=== PATIENT | female | born 1955 | race Hispanic/Latino ===

== ENCOUNTER 2017-12-28 02:18 | Inpatient (IN) | payer BC, OTHER ==
[2017-12-28] MEDS ORDERED: Albuterol 0.083% Inhal Sol (2.5 mg/3 mL) UD INH ONE (03:00)
--- NOTE | 2017-12-28 03:02 | ED PDOC ---
HPI: SOB/CHF/COPD Time Seen by Provider: 12/28/17 02:35 Chief Complaint (Nursing): Respiratory Distress Chief Complaint (Provider): Respiratory Distress History Per: Patient, Family (Brother) History/Exam Limitations: no limitations Associated Symptoms: denies: Fever Additional Complaint(s): 62 years old female with history of colon cancer that metastasized to body, lungs and brain, presents to ER for evaluation of shortness of breath and increased heart rate. Per brother on bedside, patient had her last chemotherapy treatment today. Brother reports patient is on Keppra and steroids and she does not wish to be intubated or on life support. She had surgery by Dr. Landers in [place] and [place] is where patient follows for treatment. Brother denies patient having fever or vomiting. She is awake, somnolent but not verbal at this time. PMD: non provided Past Medical History Reviewed: Historical Data, Nursing Documentation, Vital Signs Vital Signs: Last Vital Signs Temp 98.6 F 12/28/17 02:25 Pulse 145 H 12/28/17 02:25 Resp 34 H 12/28/17 02:25 BP 133/89 12/28/17 02:25 Pulse Ox 93 L 12/28/17 02:25 - Medical History PMH: HTN Other PMH: Metastasized colon cancer - Surgical History Other surgeries: Colon and brain surgery - Family History Family History: States: Unknown Family Hx - Social History Current smoker - smoking cessation education provided: No (as per brother) Alcohol: None Drugs: Denies - Home Medications Home Medications: Ambulatory Orders Medication Instructions Recorded Levetiracetam [Roweepra] 500 mg PO BID 12/28/17 Metoprolol Tartrate [Lopressor] 25 mg PO BID 12/28/17 Nystatin [Nystatin Oral Susp] 1 tsp PO QID 12/28/17 Ondansetron [Zofran] 8 mg PO Q8 12/28/17 Trifluridine/Tipiracil HCl 3 tab PO BID 12/28/17 [Lonsurf 20 mg-8.19 mg Tablet] predniSONE [Prednisone] 40 mg PO DAILY 12/28/17 - Allergies Allergies/Adverse Reactions: Allergies Allergy/AdvReac Type Severity Reaction Status Date / Time iodine Allergy ANAPHYLAXIS Verified 12/28/17 02:25 Review of Systems ROS Statement: Except As Marked, All Systems Reviewed And Found Negative Constitutional: Negative for: Fever Respiratory: Positive for: Shortness of Breath Gastrointestinal: Negative for: Vomiting Physical Exam - Reviewed Nursing Documentation Reviewed: Yes Vital Signs Reviewed: Yes - Physical Exam Appears: Positive for: Non-toxic (non verbal, baseline) Head Exam: Positive for: ATRAUMATIC, NORMOCEPHALIC Skin: Positive for: Pallor Eye Exam: Positive for: Normal appearance ENT: Positive for: Normal ENT Inspection Neck: Positive for: Normal Cardiovascular/Chest: Positive for: Regular Rate, Rhythm. Negative for: Murmur Respiratory: Positive for: Rhonchi, Other (Dyspnea) Gastrointestinal/Abdominal: Positive for: Normal Exam, Soft. Negative for: Tenderness Extremity: Positive for: Normal ROM Neurologic/Psych: Positive for: Alert (could say a few words here and there, but didnt speak a lot. ) - Laboratory Results Result Diagrams: 12/28/17 10:16 12/28/17 10:16 - ECG O2 Sat by Pulse Oximetry: 93 Pulse Ox Interpretation: Abnormal Medical Decision Making Medical Decision Making: Time: 244 Initial Plan: shortness of breath, history of metastatic cancer. per pts brother pt is DNR DNI. --CMP --CBC --Chest x-ray --Albuterol 2.5 mg INH --Nebulizer treatment --Blood culture --Urine culture --BIPAP/CPAP setting adjustment --Urinalysis respiratory called for BIPAP pt slightly improved w bipap however changed settings due to the elevated co2 according to family pt is DNR DNI covered pt with IV antibiotics [address] Galicia, medicine carbon sequestration plant manager, (pts pcp not here) who accepts patient for admission. Scribe Attestation: Documented by Evette Kidd, acting as a scribe for Cullen Erickson MD. Provider Scribe Attestation: All medical record entries made by the Scribe were at my direction and personally dictated by me. I have reviewed the chart and agree that the record accurately reflects my personal performance of the history, physical exam, medical decision making, and the department course for this patient. I have also personally directed, reviewed, and agree with the discharge instructions and disposition. Disposition - Clinical Impression Clinical Impression: Respiratory distress, Colon cancer, Brain metastasis - Patient ED Disposition Is Patient to be Admitted: Yes Counseled Patient/Family Regarding: Studies Performed, Diagnosis - Disposition Disposition Time: 05:00 Condition: SERIOUS
[2017-12-28 03:40] LABS: BASO # 0.5 K/uL (0.0-0.2); BASO % 1.2 % (0.0-2.0); HEMOGLOBIN 11.7 g/dL (12.0-16.0); LYMPH # 0.5 K/uL (1.0-4.3); LYMPH % 1.3 % (20.0-40.0); MEAN CORPUSCULAR HEMOGLOBIN 25.4 pg (27.0-31.0); MEAN CORPUSCULAR HGB CONC 30.6 g/dL (33.0-37.0); MEAN PLATELET VOLUME 8.5 fl (7.2-11.7); MONO # 1.9 K/uL (0.0-0.8); MONO % 4.6 % (0.0-10.0); NEUT % 92.9 % (50.0-75.0); NRBC % 0.1 % (0.0-0.0); PLATELET COUNT 477 K/uL (130-400); RED CELL DISTRIBUTION WIDTH 21.5 % (11.5-14.5)
[2017-12-28 03:44] LABS: ALB/GLOB RATIO 0.9 (1.0-2.1); ALBUMIN 4.3 g/dL (3.5-5.0); BLOOD UREA NITROGEN 20 mg/dl (7-17); CALCIUM 9.8 mg/dL (8.4-10.2); GFR NON-AFRICAN AMERICAN > 60
[2017-12-28 03:49] LABS: WHITE BLOOD COUNT 40.9 K/uL (4.8-10.8)
[2017-12-28 03:52] LABS: ALT/SGPT 40 U/L (9-52); AST/SGOT 62 U/L (14-36)
[2017-12-28] MEDS ORDERED: Piperacillin/Tazobact 3.375 GM in Sodium Chloride 0.9% 100 ML IVPB STA (05:15)
[2017-12-28 05:16] LABS: ABG ALLEN TEST YES; ARTERIAL BLOOD GAS HCO3 32.6 mmol/L (21-28); ARTERIAL BLOOD GAS O2 SAT 100.8 % (95-98); ARTERIAL BLOOD GAS PCO2 88 mm/Hg (35-45); ARTERIAL BLOOD GAS PH 7.27 (7.35-7.45); ARTERIAL BLOOD GAS PO2 156 mm/Hg (80-100); ARTERIAL BLOOD GAS TCO2 43.1 mmol/L (22-28)
[2017-12-28 05:32] LABS: BANDS 2 % (0-2); LYMPHOCYTE 1 % (20-50); MONOCYTE 8 % (0-10); NEUTROPHIL 89 % (42-75); PLATELET ESTIMATE MARKEDLY INCREASED (NORMAL); TOTAL CELLS COUNTED 100
[2017-12-28 05:33] LABS: HYPOCHROMIC SLIGHT; LARGE PLATELETS PRESENT; STOMATOCYTES SLIGHT
[2017-12-28 06:14] LABS: SQUAMOUS EPITHIAL 54 /hpf (0-5); URINE BILIRUBIN NEGATIVE (NEGATIVE); URINE BLOOD SMALL (NEGATIVE); URINE CLARITY TURBID (Clear); URINE COLOR AMBER (YELLOW); URINE GLUCOSE (UA) 50 mg/dL (Normal); URINE LEUKOCYTE ESTERASE TRACE Leu/uL (Negative); URINE PROTEIN 100 mg/dL (NEGATIVE)
[2017-12-28] MEDS ORDERED: Albuterol 0.083% Inhal Sol (2.5 mg/3 mL) UD ONE (07:06)
--- NOTE | 2017-12-28 09:39 | RAD ---
Date of service: 12/28/2017 HISTORY: sob COMPARISON: No prior. FINDINGS: LUNGS: Extensive opacification of the bilateral lung leach appreciated in a pattern most compatible with advance bilateral pulmonary metastasis. Underlying pneumonia not excluded bilaterally. Right MediPort in position with the tip turning the region of the distal superior vena cava. Approaches by right internal jugular vein apparently. PLEURA: No significant pleural effusion identified, no pneumothorax apparent. CARDIOVASCULAR: No aortic atherosclerotic calcification present. Normal cardiac size. No pulmonary vascular congestion. OSSEOUS STRUCTURES: No significant abnormalities. VISUALIZED UPPER ABDOMEN: Normal. OTHER FINDINGS: None. IMPRESSION: Widespread pulmonary metastases are suggested at the bilateral lungs with right MediPort in situ. Underlying infiltrate not completely excluded bilaterally, left greater than right. Follow-up chest CT can better define pulmonary parenchymal pathology.
--- NOTE | 2017-12-28 09:46 | CARD ---
APPROVED REPORT Date of service: 12/28/2017 EKG Measurement Heart [id number] 128P30 [id number] <Conclusion> Sinus tachycardia Left axis deviation Inferior infarct, age undetermined Nonspecific ST changes Abnormal ECG
[2017-12-28] MEDS ORDERED: Sodium Chloride 0.9% 1,000 ML IV SCH (10:00)
[2017-12-28 10:21] LABS: HEMOGLOBIN 10.9 g/dL (12.0-16.0); MEAN CELL VOLUME 81.9 fl (81.0-99.0); MEAN CORPUSCULAR HEMOGLOBIN 25.1 pg (27.0-31.0); MEAN CORPUSCULAR HGB CONC 30.6 g/dL (33.0-37.0); RBC 4.34 Mil/uL (3.80-5.20); RED CELL DISTRIBUTION WIDTH 21.3 % (11.5-14.5)
[2017-12-28 10:25] LABS: WHITE BLOOD COUNT 44.5 K/uL (4.8-10.8)
[2017-12-28 10:33] LABS: BLOOD UREA NITROGEN 24 mg/dl (7-17); CALCIUM 9.6 mg/dL (8.4-10.2); GFR NON-AFRICAN AMERICAN > 60
[2017-12-28 10:40] LABS: INR 1.2; PROTHROMBIN TIME 13.9 Seconds (9.8-13.1)
--- NOTE | 2017-12-28 11:04 | PCM.RRT ---
<Tree Evans - Last Filed: 12/28/17 14:05> CONCRETE PRODUCTS MACHINE OPERATOR Nurse Assessment - Situation CONCRETE [employer]ODU[employer] MACHINE OPERATOR Responder Arrival Time: 10:34 CONCRETE [employer]ODU[employer] MACHINE OPERATOR Reason for Call: Hypotension [employer]CR[employer]E [employer]ODU[employer] MACHINE OPERATOR Called By: RN - Ventilator Settings FIO2 (% Oxygen): 100 I.Reason for CONCR[employer]E [employer]ODU[employer] MACHINE OPERATOR - A) Acute Change in Patient: Subjective: Deborah Umaña is a 62 yo female with with history of colon cancer that metastasized to body, lungs and brain DNI but DO resuscitate with compression and medication, presented to ED due to SOB and tackycardia, admitted for Further evaluation. At 10:34 12/28/2017 A CONCR[employer]E [employer]ODU[employer] MACHINE OPERATOR was called due to patient blood pressure dropped to 67/37 and patient was unresponsive. Upon arrival Patient was in acute distress, unable to breath proparly, and was using extra respiratory muscle. Patient was put on Bipap, NaCl was started. ABG, EKG which showed hypercapnia but no acute changes in EKG. Patient was put on blood pressure monitoring. Patient became more awake and more responsive. On BiPAP RR was fluctuate in the 30s T volume was between 280-350, blood pressure 124/73-101/73. Patient status have improved, blood pressure is controlled, RR improved. CONCR[employer]ODU[employer] MACHINE OPERATOR was done at 10:45. Dr Galicia is aware and agreed with plan. - Neurological Status (Select all that apply): absent: Responsive - Respiratory Oxygen Delivery Method: BiPAP @% - Constitutional Appears: In Acute Distress - Head Head Exam: ATRAUMATIC, NORMAL INSPECTION, NORMOCEPHALIC - Eyes Eye Exam: EOMI, Normal appearance, PERRL - Respiratory Exam Respiratory Exam: Accessory Muscle Use, Clear to Ausculation Bilateral - Cardiovascular Exam Cardiovascular Exam: REGULAR RHYTHM, +S1, +S2 - GI/Abdominal Exam GI & Abdominal Exam: Soft, Normal Bowel Sounds - Neurological Exam Neurological Exam: Awake - Extremities Exam Extremities Exam: Normal Capillary Refill Plan - Assessment of Findings&Treatment Plan Deborah Umaña is a 62 yo female with with history of colon cancer that metastasized to body, lungs and brain DNI but DO resuscitate with compression and medication, presented to ED due to SOB and tackycardia, admitted for Further evaluation. S/P [employer]E [employer]ODU[employer] MACHINE OPERATOR Patient is on BIPAP EKG: No acute finding, sinus tackycardia, Left axis deviation, old inferior infarct age undetermined. ABG: hypercapnia pCo2 74, Ph 7.29 Troponin negative Plan Continue BIPAP Continue IV fluid Keep monitoring bp Keep monitoring ox saturation Keep patient awake <Suzanne Landers Kojo - Last Filed: 12/29/17 09:58> CONCR[employer]ODU[employer] MACHINE OPERATOR Nurse Assessment - Vital Signs Vital Signs: Rapid Response Vital Sign Blood Pressure 67/37 Pulse Rate 145 - Vital Signs at end of CON[employer]ODU[employer] MACHINE OPERATOR Vital Signs at end of CON[employer]ODU[employer] MACHINE OPERATOR: Rapid Response End Vital Sign Blood Pressure 114/66 Pulse Rate 136 Respiratory Rate 35 O2 Sat by Pulse Oximetry 93 Attending/Attestation - Attestation I have personally seen and examined this patient.: Yes I have fully participated in the care of the patient.: Yes I have reviewed all pertinent clinical information, including history, physical exam and plan: Yes Notes (Text): 12/29/17 09:58 Seen, examined, and discussed with resident. Agree with findings and plan as above.
[2017-12-28 16:07] VITALS: BP 107/69; PULSE 129; RESP 19; TEMP 101.8
--- NOTE | 2017-12-28 19:03 | CARD ---
APPROVED REPORT Date of service: 12/28/2017 EKG Measurement Heart [id number] DC 128P37 [id number] <Conclusion> Sinus tachycardia Left axis deviation Nonspecific ST and T wave changes, consider lateral wall ischemia Inferior infarct, age undetermined Abnormal ECG
--- NOTE | 2017-12-28 20:37 | CP.PCM.HP ---
History of Present Illness - History of Present Illness History of Present Illness: CC Respiratory Distress. Hx from Pt's medical record. 62 y/o F, Status DNI but do resuscitate with compression and medications, PMHx. HTN, Colon Ca with last Chemo given 1 month ago, metastasis to Lung/Brain, brought to ER [facility], via EMS on 12/28/17 to be evaluated for respiratory distress with increased SOB, associated to tachycardia/increased HR 145, onset hrs [employer] [place] [place], with no changes. At 10:30 while in ER on DOA, ENTRY LEVEL ASSISTANT MANAGER was called, Pt went into acute distress, unresponsive, with increased HR and drop of BP: 67/37, unable to breath and was placed on BIPAP Mask, FIO2 100% Symptoms by Pt unable to obtain 2nd to nonverbal. Worsening symptoms: Dyspnea at rest and on exertion, lethargic. Aggravated factor: Unable to cooperate with medical information. Nonverbal. CXR: Widespread pulmonary metastases b/l EKG: Sinus tachycardia, inferior infarct age undetermined. Present on Admission - Present on Admission Any Indicators Present on Admission: No Review of Systems - Review of Systems Systems not reviewed;Unavailable: Acuity of Condition, Respiratory Distress Past Patient History - Past Medical History & Family History Past Medical History?: Yes Pertinent Family History: Unknown - Past Social History Smoking Status: Never Smoked Alcohol: None Drugs: Denies Home Situation {Lives}: With Family - CARDIAC Hx Cardiac Disorders: Yes Hx Hypertension: Yes - PULMONARY Hx Respiratory Disorders: Yes Hx Lung Cancer: Yes - HEENT Hx HEENT Problems: No - RENAL Hx Chronic Kidney Disease: No - ENDOCRINE/METABOLIC Hx Endocrine Disorders: No - HEMATOLOGICAL/ONCOLOGICAL Hx Blood Disorders: Yes Hx Metastesis: Yes Other/Comment: colon CA, lung CA, brain CA - INTEGUMENTARY Hx Dermatological Problems: No - MUSCULOSKELETAL/RHEUMATOLOGICAL Hx Musculoskeletal Disorders: Yes Hx Falls: Yes - GASTROINTESTINAL Hx Gastrointestinal Disorders: Yes Hx Ileostomy: Yes Other/Comment: Colon cancer treated w/radiation and chemo; chemo finished last month; radiation finished in 2012 - GENITOURINARY/GYNECOLOGICAL Hx Genitourinary Disorders: No - PSYCHIATRIC Hx Psychophysiologic Disorder: No Hx Substance Use: No - SURGICAL HISTORY Hx Surgeries: Yes Other/Comment: tumor removal; ileostomy and reversal - ANESTHESIA Hx Anesthesia: Yes Hx Anesthesia Reactions: No Hx Malignant Hyperthermia: No Meds Allergies/Adverse Reactions: Allergies Allergy/AdvReac Type Severity Reaction Status Date / Time iodine Allergy ANAPHYLAXIS Verified 12/28/17 02:25 Physical Exam - Constitutional Appears: Chronically Ill - Head Exam Head Exam: NORMAL INSPECTION - ENT Exam ENT Exam: Normal Exam Additional comments: On facial BIPAP mask. - Neck Exam Neck exam: Positive for: Normal Inspection - Respiratory Exam Respiratory Exam: Decreased Breath Sounds, Rhonchi - Cardiovascular Exam Cardiovascular Exam: REGULAR RHYTHM - GI/Abdominal Exam GI & Abdominal Exam: Normal Bowel Sounds, Soft - Extremities Exam Extremities exam: Positive for: normal inspection - Psychiatric Exam Additional comments: Lethargic, nonverbal - Skin Skin Exam: Warm Results - Vital Signs Recent Vital Signs: Last Vital Signs Temp 101.8 F H 12/28/17 16:06 Pulse 129 H 12/28/17 16:06 Resp 19 12/28/17 16:06 BP 107/69 12/28/17 16:06 Pulse Ox 96 12/28/17 16:06 reviewed Amira - Labs Result Diagrams: 12/28/17 10:16 12/28/17 10:16 Labs: Laboratory Results - last 24 hr 12/28/17 12/28/17 12/28/17 03:12 03:12 05:01 WBC 40.9 H* RBC 4.60 Hgb 11.7 L Hct 38.2 MCV 83.0 MCH 25.4 L MCHC 30.6 L RDW 21.5 H Plt Count 477 H MPV 8.5 Neut % (Auto) 92.9 H Lymph % (Auto) 1.3 L [place] % (Auto) 4.6 Eos % (Auto) 0.0 Baso % (Auto) 1.2 Neut # (Auto) 38.0 H Lymph # (Auto) 0.5 L [place] # (Auto) 1.9 H Eos # (Auto) 0.0 Baso # (Auto) 0.5 H Neutrophils % (Manual) 89 H Band Neutrophils % 2 Lymphocytes % (Manual) 1 L Monocytes % (Manual) 8 Platelet Estimate Markedly increased H Large Platelets Present Hypochromasia (manual) Slight Stomatocytes Slight PT INR pCO2 88 H* pO2 156 H HCO3 32.6 H ABG pH 7.27 L ABG Total CO2 43.1 H ABG O2 Saturation 100.8 H ABG Base Excess 9.8 H Ramiro Test Yes ABG Potassium 3.7 A-a O2 Difference 447.0 Glucose 121 H Lactate 1.6 Vent Mode Bipap Mechanical Rate 16 FiO2 100.0 Inspiratory BiPAP 16 Expiratory BiPAP 6 Crit Value Called To maryse Erickson md Crit Value Called By [place] Crit Value Read Back Y Blood Gas Notified Time 515 Sodium 133 125.0 L Potassium 4.5 Chloride 88 L 92.0 L Carbon Dioxide 35 H Anion Gap 15 BUN 20 H Creatinine 0.5 L Est GFR ( Amer) > 60 Est GFR (Non-Af Amer) > 60 POC Glucose (mg/dL) Random Glucose 151 H Calcium 9.8 Total Bilirubin 1.0 AST 62 H ALT 40 Alkaline Phosphatase 176 H Troponin I Total Protein 8.8 H Albumin 4.3 Globulin 4.5 H Albumin/Globulin Ratio 0.9 L Arterial Blood Potassium 3.7 Urine Color Urine Clarity Urine pH Ur Specific [place] Urine Protein Urine Glucose (UA) Urine Ketones Urine Blood Urine Nitrate Urine Bilirubin Urine Urobilinogen Ur Leukocyte Esterase Urine Microscopic WBC Ur Squamous Epith Cells 12/28/17 12/28/17 12/28/17 06:02 09:35 10:16 WBC 44.5 H* RBC 4.34 Hgb 10.9 L Hct 35.6 MCV 81.9 MCH 25.1 L MCHC 30.6 L RDW 21.3 H Plt Count 399 MPV Neut % (Auto) Lymph % (Auto) [place] % (Auto) Eos % (Auto) Baso % (Auto) Neut # (Auto) Lymph # (Auto) [place] # (Auto) Eos # (Auto) Baso # (Auto) Neutrophils % (Manual) Band Neutrophils % Lymphocytes % (Manual) Monocytes % (Manual) Platelet Estimate Large Platelets Hypochromasia (manual) Stomatocytes PT INR pCO2 pO2 HCO3 ABG pH ABG Total CO2 ABG O2 Saturation ABG Base Excess [place] Test ABG Potassium A-a O2 Difference Glucose Lactate Vent Mode Mechanical Rate FiO2 Inspiratory BiPAP Expiratory BiPAP Crit Value Called To Crit Value Called By Crit Value Read Back Blood Gas Notified Time Sodium Potassium Chloride Carbon Dioxide Anion Gap BUN Creatinine Est GFR ( Amer) Est GFR (Non-Af Amer) POC Glucose (mg/dL) 143 H Random Glucose Calcium Total Bilirubin AST ALT Alkaline Phosphatase Troponin I Total Protein Albumin Globulin Albumin/Globulin Ratio Arterial Blood Potassium Urine Color [place] Urine Clarity Turbid Urine pH 5.0 Ur Specific [place] 1.021 Urine Protein 100 Urine Glucose (UA) 50 Urine Ketones Negative Urine Blood Small Urine Nitrate Negative Urine Bilirubin Negative Urine Urobilinogen 2.0 H Ur Leukocyte Esterase Trace Urine Microscopic WBC 3 Ur Squamous Epith Cells 54 H 12/28/17 12/28/17 12/28/17 10:16 10:16 10:30 WBC RBC Hgb Hct MCV MCH MCHC RDW Plt Count MPV Neut % (Auto) Lymph % (Auto) [place] % (Auto) Eos % (Auto) Baso % (Auto) Neut # (Auto) Lymph # (Auto) [place] # (Auto) Eos # (Auto) Baso # (Auto) Neutrophils % (Manual) Band Neutrophils % Lymphocytes % (Manual) Monocytes % (Manual) Platelet Estimate Large Platelets Hypochromasia (manual) Stomatocytes PT 13.9 H INR 1.2 pCO2 pO2 HCO3 ABG pH ABG Total CO2 ABG O2 Saturation ABG Base Excess [place] Test ABG Potassium A-a O2 Difference Glucose Lactate Vent Mode Mechanical Rate FiO2 Inspiratory BiPAP Expiratory BiPAP Crit Value Called To Crit Value Called By Crit Value Read Back Blood Gas Notified Time Sodium 134 Potassium 4.0 Chloride 91 L Carbon Dioxide 34 H Anion Gap 13 BUN 24 H Creatinine 0.8 Est GFR ( Amer) > 60 Est GFR (Non-Af Amer) > 60 POC Glucose (mg/dL) Random Glucose 136 H Calcium 9.6 Total Bilirubin AST ALT Alkaline Phosphatase Troponin I 0.0510 Total Protein Albumin Globulin Albumin/Globulin Ratio Arterial Blood Potassium Urine Color Urine Clarity Urine pH Ur Specific [place] Urine Protein Urine Glucose (UA) Urine Ketones Urine Blood Urine Nitrate Urine Bilirubin Urine Urobilinogen Ur Leukocyte Esterase Urine Microscopic WBC Ur Squamous Epith Cells reiewed J.P. - EKG Data EKG comments: reviewed J.P. - Imaging and Cardiology Chest x-ray Status: Report reviewed by me (J.P.) Assessment & Plan (1) Respiratory failure Status: Acute Priority: High (2) Colon cancer Status: Acute Priority: High (3) Malignant neoplasm metastatic to both lungs Status: Acute Priority: High (4) Brain metastasis Status: Acute Priority: High - Assessment and Plan (Free Text) Plan: Continue BIPAP, Zosyn, vanco, Albuterol and rest of Tx. Pt is DNI - Date & Time Date: 12/28/17 Time: 12:00
--- NOTE | 2017-12-29 07:05 | CP.PCM.PRO ---
<Burt Mayfield - Last Filed: 12/29/17 07:02> Pronouncement of Note - Clinical Findings Physical Exam: No Response Verbal/Painful Stimuli, Absent Peripheral Pulses{Carotid & Femoral}, Absent Heart & Breath Sounds, No Pupillary Light Reflex, No Corneal Reflex, Pupils Fixed & Dilated, Absence of Vital Signs - Pronouncement Time Time of Pronouncement of : 17:30 Additional Comments: patient 12/28/2017 @ 17:30 - Notifications Pronouncement Notifications: Family Notified, [place] Notified - [place] [id number] <Suzanne Landers - Last Filed: 12/29/17 09:52> Attending/Attestation - Attestation I have personally seen and examined this patient.: Yes I have fully participated in the care of the patient.: Yes I have reviewed all pertinent clinical information: Yes Notes (Text): 12/29/17 09:52 Seen, examined, and discussed with resident. Agree with findings as above.
[2018-01-01 14:51] VITALS: O2SAT 93
== END 2017-12-28 17:35 | DRG 189 ==
LOC: H.ER 02:18 → H.ERHOLD 04:43 → H.TEL 09:36
PROVIDERS: ADMIT Internal Medicine Pulmonary Disease; ATTEND Internal Medicine Pulmonary Disease
DX: J96.90 Respiratory failure, unspecified, unspecified whether with hypoxia or hypercapnia (principal); C18.9 Malignant neoplasm of colon, unspecified; C79.31 Secondary malignant neoplasm of brain; C78.02 Secondary malignant neoplasm of left lung; C78.01 Secondary malignant neoplasm of right lung; Z66 Do not resuscitate; Z92.3 Personal history of irradiation; J44.9 Chronic obstructive pulmonary disease, unspecified; I11.0 Hypertensive heart disease with heart failure; I50.9 Heart failure, unspecified